=== PATIENT | female | born 1955 | race Caucasian/White ===

== ENCOUNTER 2021-06-24 21:38 | Emergency (ER) | payer OTHER ==
[~2021-06-24] VITALS: Ht 157.5 cm; Wt 72.7 kg
--- NOTE | 2021-06-24 22:03 | PHYS DOC ---
Past History Past Surgical History: Cholecystectomy, Colectomy, , Hysterectomy, Tonsillectomy General Adult EDM: Chief Complaint: KNEE INJURY HPI: HPI: ".. I ve been having problems with this Rt. knee for a while... "... " They think maybe I have internal injury to it.. May be a meniscus injury on a inside medial...".." I been putting Voltaren on it for pain.'... But tonight when I started down the stairs and went to put weight on it... It completely gave out because of pain and felt like it locked.." Patient is a 65, year old female dependent who presents with above hx and complaints of of Rt. knee paiin. Patient has obvious edema right knee. Does have some crepitation on attempted range of motion. Patient is able do straight leg lift. Patient localizes most pain to the medial compartment of right knee. Does have some tenderness posterior with the edema. No findings of cording. Patient denies any specific injury. Patient has had injury to the knee years ago. Patient has never had surgery on knee endoscopic of right knee. Patient does have a history of prior multiple seasonal and food allergies. Patient cannot take Tylenol. Patient has history of prior resection of intestines and abdomen. Patient follows at [facility]. Patient does relate when she had her gallbladder removed the morphine did not help with pain. Review of Systems: Review of Systems: Constitutional: Denies fever or chills Eyes: Denies change in visual acuity HENT: Denies nasal congestion or sore throat Respiratory: Denies cough or shortness of breath Cardiovascular: Denies chest pain or edema GI: Denies abdominal pain, nausea, vomiting, bloody stools or diarrhea : Denies dysuria Musculoskeletal: Complains of right knee pain Integument: Denies rash Neurologic: Denies headache, focal weakness or sensory changes Endocrine: Denies polyuria or polydipsia Lymphatic: Denies swollen glands Psychiatric: Denies depression or anxiety Family History: Family History: Noncontributory to presentation Current Medications: Current Meds: See nursing for home meds Allergies: Allergies: Allergic to eggs, Tylenol and oxycodone Physical Exam: PE: Constitutional: Moderate acute distress, non-toxic appearance. [] HENT: Normocephalic, atraumatic, bilateral external ears normal, oropharynx moist, no oral exudates, nose normal. [] Eyes: PERRLA, EOMI, conjunctiva normal, no discharge. [] Neck: Normal range of motion, no tenderness, supple, no stridor. [] Cardiovascular:Heart rate regular rhythm, no murmur [] Lungs & Thorax: Bilateral breath sounds equal apex auscultation [] Abdomen: Bowel sounds normal, soft, no tenderness, no masses, no pulsatile masses. Old surgery scars Skin: Warm, dry, no erythema, no rash. Poor turgor Back: No tenderness, no CVA tenderness. [] Extremities right knee tenderness, no cyanosis, no clubbing, ROM intact but very guarded in her right knee, right knee edema. [] No cording appreciated. Neurologic: Alert and oriented X 3, normal motor function, normal sensory function, no focal deficits noted. [] Psychologic: Affect anxious, judgement normal, mood normal. [] Current Patient Data: Vital Signs: Vital Signs Date Time Temp Pulse Resp B/P (MAP) Pulse Ox O2 Delivery O2 Flow Rate FiO2 06/24/21 21:40 97.9 87 16 137/65 (89 94 Room Air EKG: EKG: [] Radiology/Procedures: Radiology/Procedures: [][place] [address] IMAGING REPORT Signed PATIENT: LIMA SAAVEDRA ACCOUNT: [id number] : 1955 LOCATION: ER AGE: 65 SEX: F EXAM STATUS: REG ER ORD. PHYSICIAN: FAITH JACKSON MD REASON: pain, locking up, X 2 MONTHS, WORSE TODAY PROCEDURE: KNEE RIGHT 4V EXAMINATION: Right knee radiograph. VIEWS: 4 COMPARISON: None INDICATION:65 years, Female, pain for 3 months. FINDINGS: No acute fracture, dislocation or subluxation. Mild tricompartment osteoarthritis, worst at the patellofemoral joint. Small suprapatellar joint e ffusion. No soft tissue swelling. IMPRESSION: 1. Mild tricompartment osteoarthritis, worst at the patellofemoral joint. 2. Small suprapatellar joint effusion. Electronically signed by: Rhiannon Fermin MD (06/24/2021 11:14 PM) [facility] DICTATED AND SIGNED BY: RHIANNON FERMIN MD DATE: 06/24/21 8106 CC: ANOOP LEONARD DO; FAITH JACKSON MD ~MTH0 0 Heart Score: C/O Chest Pain: N/A Risk Factors: Risk Factors: DM, Current or recent (<one month) smoker, HTN, HLP, family history of CAD, obesity. Risk Scores: Score 0 - 3: 2.5% MACE over next 6 weeks - Discharge Home Score 4 - 6: 20.3% MACE over next 6 weeks - Admit for Clinical Observation Score 7 - 10: 72.7% MACE over next 6 weeks - Early Invasive Strategies Course & Med Decision Making: Course & Med Decision Making Pertinent Labs and Imaging studies reviewed. (See chart for details) Patient to follow-up at [facility]. Recommend follow-up with orthopedics. If no current orthopedic available through [facility] consider follow-up with [facility]. Suspect patient will need an MRI to totally evaluate knee injury. Wear Zach wrap. Use crutches. Ice packs as needed. Elevate. Continue Voltaren cream as needed. Impression: 1. Rt. knee pain- suspect medial meniscus injury and osteoarthritis [] Dragon Disclaimer: Dragon Disclaimer: This electronic medical record was generated, in whole or in part, using a voice recognition dictation system. Departure Departure: Referrals: ANOOP LEONARD DO (PCP) Scripts Hydrocodone/Ibuprofen (HYDROCODONE-IBUPROFEN 7.5-200 ) 1 Each Tablet 1 TAB PO PRN Q6HRS PRN for PAIN, #30 TAB 0 Refills Prov: FAITH JACKSON MD 06/24/21 Dragon Disclaimer This chart was dictated in whole or in part using Voice Recognition software in a busy, high-work load, and often noisy Emergency Department environment. It may contain unintended and wholly unrecognized errors or omissions. Dragon Disclaimer This chart was dictated in whole or in part using Voice Recognition software in a busy, high-work load, and often noisy Emergency Department environment. It may contain unintended and wholly unrecognized errors or omissions. Dragon Disclaimer This chart was dictated in whole or in part using Voice Recognition software in a busy, high-work load, and often noisy Emergency Department environment. It may contain unintended and wholly unrecognized errors or omissions. FAITH JACKSON MD Jun 24, 2021 22:03
[2021-06-24 22:50] VITALS: BP 136/83
--- NOTE | 2021-06-24 23:17 | RAD ---
EXAMINATION: Right knee radiograph. VIEWS: 4 COMPARISON: None INDICATION:65 years, Female, pain for 3 months. FINDINGS: No acute fracture, dislocation or subluxation. Mild tricompartment osteoarthritis, worst at the andrews lofemoral joint. Small suprapatellar joint effusion. No soft tissue swelling. IMPRESSION: 1. Mild tricompartment osteoarthritis, worst at the patellofemoral joint. 2. Small suprapatellar joint effusion. Electronically signed by: Lila Fermin MD (06/24/2021 11:14 PM) [facility]
[2021-06-24] MEDS ORDERED: HYDR-1179 PO (23:23)
[2021-06-25] MEDS ORDERED: HYDR-1179 PO (10:09)
== END 2021-06-24 23:59 | disposition home or self-care (01) ==
LOC: ER 21:38
DX: M25.561 Pain in right knee (principal); R60.0 Localized edema; Z88.5 Allergy status to narcotic agent; Z88.8 Allergy status to other drugs, medicaments and biological substances; Z91.012 Allergy to eggs
CPT/HCPCS: 73564; 96372; 99283; J3010